=== PATIENT | female | born 1965 | race Caucasian/White ===

== ENCOUNTER → 2020-10-02 08:23 | Outpatient (CLI) | payer BC, SELFPAY ==
--- NOTE | ~2020-10-02 | MR_ITS ---
EXAMINATION: MR abdomen wo/w con DATE: 10/02/2020 10:17 INDICATION: Pelvic cystic lesion. TECHNIQUE: Magnetic resonance imaging (MRI) of the abdomen was performed without and with 15 mL Multi Sugar intravenous contrast. Sequences included coronal T2-weighted FS FSE, coronal and axial FS FIEST A, axial T2-weighted FSE, coronal LAVA-flex, axial STIR FSE, axial DWI, axial dual-echo T1-weighted F SPGR, and axial LAVA. Postcontrast sequences included coronal LAVA-flex and a time course of axial LA VA. COMPARISON: None. FINDINGS: There is diffuse hepatic steatosis. There are cysts in the liver measuring up to 5.1 cm. There is a s mall sliding hiatal hernia. The spleen, pancreas, adrenal glands, and right kidney are normal. There are cysts in left kidney measuring up to 14 mm. The gallbladder is absent. There are no dilated loops of bowel. There are no pathologically enlarged lymph nodes. There is no free intraperitoneal fluid. IMPRESSION: 1. Benign cysts in the liver and left kidney. 2. Diffuse hepatic steatosis. 3. Small sliding hiatal hernia. Reviewed, dictated and finalized at location A.
--- NOTE | ~2020-10-02 | MR_ITS ---
EXAMINATION: MR pelvis wo/w con DATE: 10/02/2020 09:57 INDICATION: Pelvic cystic lesion. TECHNIQUE: Magnetic resonance imaging (MRI) of the pelvis was performed without and with 15 mL MultiH ance intravenous contrast. Sequences included coronal and axial T2-weighted FS FSE, axial T1-weighted FS FSE, axial LAVA, coronal FS FIESTA, coronal LAVA-flex, axial T2-weighted FSE, axial dual-echo T1- weighted FSPGR, axial FS FIESTA, axial DWI, and small [id number] sagittal, coronal, and axial T2-w eighted FSE. Postcontrast sequences included coronal LAVA-flex and axial LAVA. COMPARISON: CT abdomen 01/12/2018 FINDINGS: There are no dilated loops of bowel. There are no pathologically enlarged lymph nodes. There is no fr ee intraperitoneal fluid. There are changes of hysterectomy. The ovaries are normal. IMPRESSION: 1. Normal pelvis status post hysterectomy. Reviewed, dictated and finalized at location A.
[2020-10-02 09:08] LABS: Estimated Glomerular Filt Rate 58
== END ==
PROVIDERS: PCP Internal Medicine; Visit Provider Physician Assistant Medical
DX: N28.89 Other specified disorders of kidney and ureter (principal); M85.451 Solitary bone cyst, right pelvis; K76.0 Fatty (change of) liver, not elsewhere classified; K44.9 Diaphragmatic hernia without obstruction or gangrene
CPT/HCPCS: 72197; 74183; A9577